=== PATIENT | female | born 1940 | race Caucasian/White ===

== ENCOUNTER → 2023-11-12 13:54 | Outpatient (REF) | payer MEDICARE, SELFPAY | LOC: HWWDC 13:54 | PROVIDERS: ATTENDING PHYSICIAN Family Medicine | DX: Z12.31 Encounter for screening mammogram for malignant neoplasm of breast (principal) | CPT/HCPCS: 77063; 77067 ==

== ENCOUNTER 2024-05-27 21:04 | Emergency (ER) | payer MEDICARE, SELFPAY ==
[2024-05-27 21:06] VITALS: BP 156/91
[2024-05-27 21:19] LABS: % Basophils 0.3 % (0-2); % Eosinophils 1.1 % (0-6); % Immature Granulocytes 0.3 % (0-0.5); % Lymphocytes 6.3 % (20.5-51.1); % Monocytes 6.3 % (1.7-9.3); % Neutrophils 85.7 % (42.2-75.2); Absolute Basophils 0.1 10^3/uL (0-0.2); Absolute Eosinophils 0.2 10^3/uL (0-0.7); Absolute Immature Granulocytes 0.1 10^3/uL (0-0.05); Absolute Neutrophils 13.5 10^3/uL (1.4-6.5); Hemoglobin 13.2 g/dL (12.0-16.0); Mean Corp Hgb Conc. 35.7 g/dL (33.0-37.0); Mean Corpuscular Hgb 30.2 pg (27.0-31.0); Mean Corpuscular Volume 84.7 fL (81.0-99.0); Mean Platelet Volume 9.5 fL (7.4-10.4); Nucleated Red Blood Cells % 0 %; Platelet Count 235 10^3/uL (130-400); Red Blood Cell Count 4.37 10^6/uL (4.20-5.40); Red Cell Dist. Width 13.2 % (11.5-14.5); White Blood Cell Count 15.8 10^3/uL (4.8-10.8)
[2024-05-27 21:50] VITALS: BP 132/71
[2024-05-27 22:00] VITALS: BP 138/75
[2024-05-27 22:02] LABS: ALT (SGPT) 24 U/L (0-35); AST (SGOT) 37 U/L (14-36); Albumin 4.6 g/dl (3.5-5.0); Alkaline Phosphatase 76 U/L (38-126); Blood Urea Nitrogen 25 mg/dl (7-17); Calcium 9.9 mg/dl (8.4-10.2); Carbon Dioxide 24 mmol/L (22-30); Chloride 100 mmol/L (98-107); Glucose 138 mg/dl (70-99); Potassium 3.6 mmol/L (3.5-5.1); Sodium 140 mmol/L (135-145); Total Bilirubin 0.4 mg/dl (0.2-1.3); Total Protein 7.5 g/dl (6.3-8.2); eGFR > 60.00
[2024-05-27 22:12] LABS: Erythrocyte Sed Rate 20 mm/hour (0-20)
[2024-05-27 22:32] VITALS: BMI 20.9
[2024-05-27 22:44] VITALS: BP 142/78
--- NOTE | 2024-05-27 22:45 | ED.GENMED ---
History of Present Illness
General
Chief Complaint: Blood Pressure Problem
Time Seen by Provider: 05/27/24 21:51
History of Present Illness
History of Present Illness:
TIME OF INITIAL ENCOUNTER: 9:30 PM
HPI: The patient was at an application counselor earlier today and was noted to have blood pressure readings of 150 systolic. She was asked if she had any high blood pressure or vomiting. She said no at the time however when she got home she started vomiting
and had a headache. The headache is described as a pressure mostly localized to the left yarsanism region. However overall she currently feels improved. She reports no definite pain with chewing food.
EXAM:
GENERAL: Well appearing in no distress, mild hypertension noted
HEENT: Moist oral mucosa, mild tenderness at the left yarsanism
CARDIOVASCULAR: No murmurs, normal heart rate, regular rhythm, No chest wall tenderness
PULMONARY: No respiratory distress, breath sounds are clear and equal
ABDOMEN: Soft with no peritoneal signs, no tenderness
NEUROLOGIC: Excellent strength all extremities, no coordination deficits
PSYCHIATRIC: Appropriate mental status, normal insight and judgement
EXTREMITIES: Nontender, no edema, moves all extremities equally
SKIN: No rash, no lesions
NUMBER AND COMPLEXITY OF PROBLEMS ADDRESSED AT THE ENCOUNTER
� Chronic conditions affecting care: High blood pressure
� Acute Exacerbation and/or Progression of Chronic Illness: This is an acute problem
� Differential Diagnosis includes: Poorly controlled high blood pressure, temporal arteritis
AMOUNT AND/OR COMPLEXITY OF DATA TO BE REVIEWED AND ANALYZED
� I performed an independent evaluation of and my interpretation is:
EKG:
CT:
X-rays:
Laboratory Studies: White count 15.8, chemistries show BUN of 25 with normal creatinine
Other:
� Review of other/old records: I reviewed records�she was here with colonoscopy in 2018
� Clinical information was obtained by an independent historian: I spoke to the son at bedside
� Prescriptions/Medications Considered but not given:
� Further testing considered but not performed:
RISK OF COMPLICATIONS AND/OR MORBIDITY OR MORTALITY OF PATIENT MANAGEMENT
� Social determinants of health affecting care:
� Discussion with other providers:
� Escalation of care including admission/observation vs risk of discharge considered: Leukocytosis may be related to the fact she was vomiting earlier. She currently does not feel sensation of need to vomit and is very
well-appearing and overall feels improved. Blood pressure is currently improved. She had been taking 5 mg of amlodipine but took 10 this evening when she noted that her blood pressure was high.
ANY OTHER UPDATES:
10:45 PM: I reassessed patient, she overall spontaneously feels improved
Phy Exam
Physical Exam
Physical Exam:
See HPI
Course
Orders/Labs/Results
Orders:
Orders
05/27/24 21:14
CMP [Comprehensive Metabolic Panel] Urgent
Complete Blood Count/With Diff Urgent
Erythrocyte Sed Rate Urgent
Comment: ADD ON
05/27/24 22:01
Add On- LAB Urgent
Tests Added?: esr
Abnormal Lab Results
05/27/24
21:14
WBC 15.8 H 10^3/uL
(4.8-10.8)
Abs Immat Gran (auto) 0.1 H 10^3/uL
(0-0.05)
Absolute Neuts (auto) 13.5 H 10^3/uL
(1.4-6.5)
Absolute Lymphs (auto) 1.0 L 10^3/uL
(1.2-3.4)
Absolute Monos (auto) 1.0 H 10^3/uL
(0.1-0.6)
Neutrophils % 85.7 H %
(42.2-75.2)
Lymphocytes % 6.3 L %
(20.5-51.1)
BUN 25 H mg/dl
(7-17)
Glucose 138 H mg/dl
(70-99)
AST 37 H U/L
(14-36)
05/27/24 21:14
05/27/24 21:14
Vital Signs
Initial and Last Documented VS:
Initial Vital Signs
Temp Pulse Resp BP Pulse Ox
98.1 F 85 18 156/91 97
05/27/24 21:06 05/27/24 21:06 05/27/24 21:06 05/27/24 21:06 05/27/24 21:06
Last Documented Vital Signs
Temp Pulse Resp BP Pulse Ox
98.1 F 70 18 138/75 95
05/27/24 21:06 05/27/24 22:00 05/27/24 21:06 05/27/24 22:00 05/27/24 22:00
*Critical Care Note
Total Time (30-74mins, 75-104mins- exclusive of procedures): Not Applicable
ED Attending Note
-
Portions of this chart may have been created with voice recognition software.� Occasional wrong word or��sound alike� substitutions may have occurred due to the inherent limitations of voice recognition software.
Discharge Plan
Departure
Patient Disposition: Home (Routine Discharge)
Date of Disposition: 05/27/24
Time of Disposition: 22:43
Patient with high blood pressure during this ER visit?: Yes
Discharge Problem:
High blood pressure
Instructions: High Blood Pressure (DC), BLOOD PRESSURE
Prescriptions:
New
amlodipine 10 mg tablet
10 mg PO DAILY Qty: 30 0RF
No Action
amlodipine 5 mg Tablet
5 mg PO HS
Referrals:
Joe Perez MD [Family Provider] -
Activity Restrictions/Additional Instructions:
Your white blood cell count is elevated however other blood work is unremarkable. We added a sed rate which does not show any signs of temporal arteritis/giant cell arteritis. Your blood pressure remains somewhat elevated despite taking a total of
10 mg of amlodipine. I send a prescription for amlodipine 10 mg to your pharmacy. Use this instead of the 5 mg.
Interventions
Interventions:
*Risk Screen - Suicide Last Done: 05/27/24 22:25
*General Assessment Last Done: 05/27/24 22:25
*Neglect/Abuse Screening Last Done: 05/27/24 22:25
ED- Fall Risk Assessment Last Done: 05/27/24 22:00
ED- Cardiac Assessment Last Done: 05/27/24 22:00
ED- Neurological Assessment Last Done: 05/27/24 22:00
ED- Pulmonary Assessment Last Done: 05/27/24 22:00
Discharge Date and Time
Print Language: SWEDISH
== END 2024-05-27 22:58 | disposition home or self-care (01) ==
LOC: EMR 21:04
PROVIDERS: EMERGENCY PHYSICIAN Emergency Medicine; FAMILY PHYSICIAN Family Medicine
DX: I10 Essential (primary) hypertension (principal)
CPT/HCPCS: 99283; 80053; 85025; 85652

== ENCOUNTER → 2024-11-26 09:45 | Outpatient (REF) | payer MEDICARE, SELFPAY | LOC: HWRAD 09:45 | PROVIDERS: ATTENDING PHYSICIAN Family Medicine | DX: Z12.31 Encounter for screening mammogram for malignant neoplasm of breast (principal); M81.0 Age-related osteoporosis without current pathological fracture | CPT/HCPCS: 77063; 77067; 77080 ==